=== PATIENT | female | born 2000 | race Caucasian/White ===

== ENCOUNTER 2022-05-20 13:10 | Outpatient (CLI) | payer BC, SELFPAY ==
--- OUTSIDE RECORDS SUMMARY | 2022-05-20 13:24 | XMS_ITS ---
:2001 Author Care Team Providers Name Role Phone DR. WILLIAM DACOSTA Primary Care Provider [phone] DR. LEANDRO DUMONT Referring Provider [phone] [facility] Physical Therapist [phone] Allergies Code Code System Name Reaction Severity Status Onset NKDA ? Medications Name Status Start Date Stop Date ? ? escitalopram 5 mg tablet Active ? Not justen ilable fluticasone propionate 50 mcg/actuation nasal spray,suspension A ctive ? Not available SHAKE LIQUID AND USE 2 SPRAYS IN EACH NOSTRIL EVERY DAY Isibloom 0.15 mg-0.03 mg tablet Active ? Not available TAKE 1 TABLET BY MOUTH DAILY nitrofurantoin monohydrate/macrocrystals 100 mg capsule Complete d ? 01/26/2022 TAKE 1 CAPSULE BY MOUTH EVERY 12 HOURS FOR 5 DAYS. Notes: Hydroxezene Problems Name Status Onset Date Source ? Recurrent Subluxation of Temporomandibular Joint Active 01/27/2022 ? Myofascial Pain Active 01/27/2022 ? Arthralgia of Temporomandibular Joint Active 01/27/2022 ? 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 Procedures Date Name Performed by ? 06/26/2019 [facility] Teeth Extraction Information not available Results Lab Results Date Name Specimen Result Interpretation Description Value Range Status Address ? 01/27/2022 Oral Appliance ? Type of maxillary ? ? [place]: Preparation* Appliance stabilization [address] [place] [address] Past Encounters 02/10/2022 Bilateral Temporomandibular Joint Articu lar Disc Disorder; Recurrent Subluxation of Temporomandibular Joint; Myofascial Pain; Arthralgia of Temporomandibular Joint Elba Ochoa, DDS: [address], [address], [place] [address], Ph. 01/26/2022 Recurrent Subluxation of Temporomandibul ar Joint; Arthralgia of Temporomandibular Joint; Bilateral Temporomandibular Joint Articular Disc Disorder; Myofascial Pain Elba Ochoa, DDS: [address] [facility], [address], [place] [address], Ph. Social History Tobacco Smoking Status Never Smoker Vaccine List Vaccine Type COVID-19 (SARS-COV-2) vaccine, unspecifi ed 05/26/2021 influenza, injectable, quadrivalent 03/26/2021 Plan of Care Reminders Provider Appointments None recorded. ? ? Lab None recorded. ? ? Referral None recorded. ? ? Procedures None recorded. ? ? Surgeries None recorded. ? ? Imaging None recorded. ? ? Vitals 02/10/2022 04:15PM SPLINT INSERT Height 5 ft 5 in 01/26/2022 01:00PM NEW PATIENT 60 Height Weight BMI Blood Pressure 5 ft 5 in 125 lbs 20.8 kg/m2 92/62 mm[Hg]
--- OUTSIDE RECORDS SUMMARY | 2022-05-20 13:24 | XMS_ITS | Clinical Summary ---
:2000 Author Organization [employer] [place] [address] Care Team Providers Name Role Phone Katia Olivier MD Primary Care Provider [phone] Allergies Active Allergy Reactions Severity Noted Date Comments Pollen Extracts Runny Nose 11/28/2018 Medications Medication Sig Dispensed Refills Start Date End Date Status cholecalciferol Take 1 capsule 0 09/06/2012 Active (VITAMIN D-3) 2,000 by mouth once unit capsule daily. durable medical Plantar 1 Each 0 11/24/2020 Act vu equipment fasciitis night (DME)Indications: splint, small, Plantar fasciitis Ref: [phone] fluticasone (50 mcg per Inhale 2 Sprays 48 g 3 12/10/2021 Active actuation) nasal to both nostrils solution once daily. (FLONASE)Indications: Allergic rhinitis, unspecified seasonality, unspecified trigger desogestrel-ethinyl Take 1 Tablet by 112 Tablet 3 01/13/2022 Active estradiol 0.15-30 mouth once mg-mcg (Isibloom) daily. tabletIndications: Uses contraception hydrOXYzine HCL Take 1-2 Tablets 5 Tablet 11 01/13/2022 Active (ATARAX) 25 mg (25-50 mg) by tabletIndications: mouth one time Severe needle phobia if needed for Anxiety. HOLD until patient calls escitalopram oxalate Take 1 Tablet 90 Tablet 0 04/11/2022 Active (LEXAPRO) 10 mg (10 mg) by mouth tabletIndications: every morning. Panic disorder Dose increase as of 04/11/2022 Active Problems Problem Noted Date Panic disorder 03/09/2018 Depression 03/09/2018 Performance anxiety 03/08/2018 Dog bite 04/27/2017 Psychophysiological insomnia 02/19/2016 Allergic rhinitis 11/27/2013 Anxiety state, unspecified 10/01/2012 Flat feet 12/12/2011 Other abnormal blood chemistry 09/17/2007 Resolved Problems Problem Noted Date Resolved Date Unspecified constipation 09/17/2007 08/08/2017 Encounters Date Type Specialty Care Team Description 04/11/2022 Telemedicine Katia Olivier Medicat ion Management MD Lenore (anxiety medica tions ); Telehealth (no vitals taken- virtual visit ) 04/11/2022 Travel from Last 3 Months Immunizations Name Administration Dates Next Due AMB Influenza, (Flumist) Live 06/23/2014, 05/30/2008 Intranasal,LAIV4 (Flu Clinic Only) AMB Influenza, IIV3 (Age >=3 04/11/2013 years)(Flu Clinic Only) COVID-19 vaccine ([employer] 06/14/2021, 10/22/2020, 30mcg/0.3mL) PF, MDV DTaP 01/31/2006, 06/08/2002, 02/26/2002, 2001, 2001 HIB-HepB (Comvax) 02/26/2002, 2001, 2001 Hepatitis A (Peds) 01/29/2013, 02/15/2012 Human Papilloma Virus Vaccine 01/29/2013, 02/15/2012 Inactivated Polio Vaccine 01/31/2006, 02/26/2002, 2001 , 2001 Influenza A (H1N1), Inactivated 04/16/2021, 06/03/2009, 04/27 Influenza A (H1N1), Live Intranasal 06/03/2009, 05/15/2009 Influenza, IIV3 (Age 6-35 mos) 05/15/2011, 06/03/2009, 06/15, 05/14/2007 Influenza, IIV3 (Age >=3 years) 05/15/2011, 06/03/2009, 05/27, 05/14/2007 Influenza,LAIV4 Live Intranasal 06/23/2014, 04/18/2012, 10/2007 (Flumist) MMR 01/31/2006, 05/28/2002 Meningococcal B 04/18/2019, 02/05/2019 Meningococcal Vaccine (Menveo) 02/05/2019, 02/15/2012 Pneumococcal conj 7-Valent (Prevnar 7) 05/28/2002, 2, 2001, 2001 Tdap 02/15/2012 Varicella Vaccine 02/19/2007, 05/28/2002 Family History Medical History Relation Name Comments ADD / ADHD Brother 1 Mihai ADD / ADHD Brother 2 Bennett Good Health Father Jeremie Cancer-breast Maternal Grandmother Good Health Mother Jocy Cancer-breast Paternal Grandmother Relation Name Status Comments Brother 1 Mihai Alive Brother 2 Ebnnett Alive Father Jeremie Alive Maternal Grandmother Mother Jocy Alive Paternal Grandmother Social History Tobacco Use Types Packs/Day Years Used Date Never Smoker Smokeless Tobacco: Never Used Tobacco Cessation: Counseling Given: Yes Comments: no one smokes in home Alcohol Use Standard Drinks/Week Comments Yes 0 (1 standard drink = 0.6 oz pure alcoho l) socially- very rare Alcohol Habits Answer Date Recorded How often do you have a drink containing alcohol? Monthly or less 02/03/2020 How many drinks containing alcohol do you have on a 1 or 2 02/03/2020 typical day when you are drinking? How often do you have six or more drinks on one Never 02/03/2020 occasion? Comment: socially- very rare 02/03/2020 Sex Assigned at Date Recorded Female 11/24/2020 12:15 PM CDT Obstetrics History Last Filed Vital Signs Vital Sign Reading Time Taken Comments Blood Pressure 108/71 01/13/2022 2:27 PM CDT Pulse 91 01/13/2022 2:27 PM CDT Temperature 36.8 ??C (98.2 ??F) 04/18/2019 2:07 PM CDT Respiratory Rate 18 12/17/2020 4:23 PM CDT Oxygen Saturation 98% 01/13/2022 2:27 PM CDT Inhaled Oxygen Concentration - - Weight 59 kg (130 lb) 12/22/2020 1:52 PM CDT Height 168.4 cm (5' 6.3) 01/13/2022 2:27 PM CDT Body Mass Index 21.63 12/17/2020 4:23 PM CDT Plan of Treatment Upcoming Encounters Date Type Specialty Care Team Description 05/23/2022 Telemedicine Tasha Olivier MD [address] [place], [place] [address] (Wo rk) Health Maintenance Due Date Last Done Comments HIV for age 15-65 02/07/2016 Hepatitis C screening for age 0802/06/2019 18-79 COVID-19 vaccine series (4 - 08/09/2021 06/14/2021, 021, Booster for Pfizer series) 10/01/2020 BMI (ht and wt on same day) for 12/17/2021 12/17/2020, 10/11/2019, age 18+ 04/18/2019 Pap test for age 21-65 2022 Tetanus booster 02/14/2022 02/15/2012 Influenza for age 9-49 02/24/2022 04/16/2021, 06/23/2014, 06/23/2014, Additional history exists Chlamydia for age 16-24 01/13/2023 01/13/2022, 12/17/2020 Depression screening for age 12+ 04/11/2023 04/11/2022, , 06/14/2021, Additional history exists Tdap Completed 02/15/2012 HPV series for age 9-26 Completed 01/29/2013, 02/15/2012 Meningococcal series for age 11-21 Completed 02/05/2019, 0 02/15/2012 Results Not on filefrom Last 3 Months Insurance Payer Benefit Plan / Subscriber ID Effective Dates Phone Addre ss Type Group [employer] [id number] 2016-Present [address] [place] [address] [employer] [id number] 2020-Present [address] [place] [address] Advance Directives Latest Code Status on File Code Status Date Activated Date Inactivated Comments Full Code 11/28/2018 9:00 PM 11/30/2018 7:39 PM Code Status Discussion: Not Discussed Care Teams Instrument Repairer Relationship Specialty Start Date End Date Katia Olivier MD PCP - General 12/01/05 [address] [place] [address]
[2022-05-20 13:46] LABS: Strep A DNA Probe* NOT DETECTED (Not Detectd)
== END 2022-05-20 13:11 | disposition home or self-care (01) ==
LOC: NFLDUCREF 13:14
PROVIDERS: Visit Provider Registered Nurse
DX: J02.9 Acute pharyngitis, unspecified (principal); J10.1 Influenza due to other identified influenza virus with other respiratory manifestations
CPT/HCPCS: 87651

== ENCOUNTER 2023-06-14 14:01 | Emergency (ER) | payer BC, SELFPAY ==
[2023-06-14 14:17] VITALS: BP 125/73; PULSE 100; RESP 20; TEMP 37.2; O2SAT 98; BMI 21.6
[2023-06-14 15:00] LABS: PCR FLU A POSITIVE PCR FLU A (Negative); PCR FLU B Negative PCR FLU B (Negative); PCR RSV Negative PCR RSV (Negative)
[2023-06-14 15:05] LABS: SARS PCR* POSITIVE SARS-CoV-2 (Negative)
[2023-06-14 16:17] VITALS: BP 128/80; PULSE 92; RESP 20; O2SAT 98
--- NOTE | 2023-06-14 16:21 | ED.GENADULT ---
HPI - General Adult General Chief complaint: Shortness of Breath/Dyspnea Stated complaint: Covid+, short of breath Time Seen by Provider: 06/14/23 15:39 History of Present Illness HPI narrative: This 23-year-old female comes in with upper respiratory symptoms that began 2 days ago. She states that she had fever with cough and nasal congestion. She reports a little bit of shortness of breath when exerting herself. She arrives here with normal vital signs. Related Data Home Medications Medication Instructions Recorded Confirmed desogestrel 0.15 mg-ethinyl 1 tab PO QDAY 05/20/22 05/20/22 estradiol 0.03 mg tablet (Isibloom) escitalopram oxalate 10 mg tablet 10 mg PO QDAY 05/20/22 05/20/22 (Lexapro) fluticasone propionate 50 2 spray intranasal QDAY 05/20/22 05/20/22 mcg/actuation nasal spray,suspension Previous Rx's Medication Instructions Recorded oseltamivir 75 mg capsule (Tamiflu) 75 mg PO BID 5 days #10 caps 06/14/23 Allergies Allergy/AdvReac Type Severity Reaction Status Date / Time pollen extracts Allergy Mild Verified 05/20/22 13:01 Review of Systems Status of ROS: Reports: 10 or more systems reviewed and unremarkable except as noted in History and below Narrative: Constitutional: No fevers, no weight gain or loss. Eyes: No discharge. No vision changes. HENT: Nasal congestion, no sore throat, no ear pain. Cardiovascular: No chest pain, no palpitations. Respiratory: No shortness of breath, no wheezes. She reports a cough. Gastrointestinal: No abdominal pain, no vomiting, no diarrhea. Genitourinary: No dysuria, no hematuria. Musculoskeletal: Normal range of motion. Skin: No rashes, no pruritis. Neurological: No dizziness, weakness, sensory change, speech change. Endo/Heme/Allergies: No bruising or bleeding. No polydipsia. Pysch: no suicidality, no anxiety, no insomnia. All other systems reviewed and are negative. PFSH PFS Social History Smoking Status: Never smoker Exam Narrative: Exam Narrative: Constitutional: Well-developed, well-nourished, no acute distress. HEENT: Normocephalic, atraumatic. Neck: Normal range of motion. Nontender. Supple. Heart: Regular. No murmurs. Normal rate. Intact distal pulses. Lungs: Clear to auscultation. No chest discomfort. No wheezes, rhonchi, or rales. Abdomen: Normal bowel sounds. Nontender. No rebound tenderness. Genitalia: Deferred. Back: No midline tenderness. Normal range of motion. Extremities: Normal range of motion. No injury. Skin: Intact. No rash. Warm. No erythema or pallor. Neurologic: No altered sensation. No weakness. Alert and oriented. Psychiatric: No suicidality. No anxiety or depression. No insomnia. Nursing notes and vitals signs are reviewed. Const: Vital Signs, click to edit/add: Vital Signs - 24 hr 06/14/23 14:17 Temperature 98.9 F Pulse Rate [Pulse Oximeter] 100 Respiratory Rate 20 Blood Pressure [Ri ght Upper Arm] 125/73 Pulse Oximetry 98 Oxygen Delivery Me thod Room Air Course Vital Signs Vital signs: Initial Vital Signs Temperature 98.9 F 06/14/23 14:17 Temperature Source Temporal Artery Scan 06/14/23 14:17 Pulse Rate 100 06/14/23 14:17 Respiratory Rate 20 06/14/23 14:17 Blood Pressure 125/73 06/14/23 14:17 Blood Pressure Mean 90 06/14/23 14:17 Blood Pressure Position Sitting 06/14/23 14:17 Pulse Oximetry 98 06/14/23 14:17 Oxygen Delivery Method Room Air 06/14/23 14:17 Vital Signs Temperature 98.9 F 06/14/23 14:17 Pulse Rate 100 06/14/23 14:17 Respiratory Rate 20 06/14/23 14:17 Blood Pressure 125/73 06/14/23 14:17 Pulse Oximetry 98 06/14/23 14:17 Oxygen Delivery Method Room Air 06/14/23 14:17 Temperature 98.9 F 06/14/23 14:17 Pulse Rate 100 06/14/23 14:17 Respiratory Rate 20 06/14/23 14:17 Blood Pressure 125/73 06/14/23 14:17 Pulse Oximetry 98 06/14/23 14:17 Oxygen Delivery Method Room Air 06/14/23 14:17 Medical Decision Making MDM Narrative Medical decision making narrative: Nasal pharyngeal swab returns positive for both COVID and influenza a. The patient had symptoms beginning less than 48 hours ago and is a candidate for Tamiflu. She also received an oral dose of dexamethasone 10 mg. She is encouraged to use [id number] medicines as needed and directed also. Lab Data Labs: Lab Results 06/14/23 Range/Units 14:15 SARS-CoV-2 (PCR) POSITIVE SARS-CoV-2 A (Negative) Influenza Type A (PCR) POSITIVE PCR FLU A A (Negative) Influenza Type B (PCR) Negative PCR FLU B (Negative) RSV (PCR) Negative PCR RSV (Negative) Discharge Plan Discharge Clinical Impression: COVID-19, Influenza A Patient Disposition: Home, Self-Care Condition: Stable Additional Instructions: Take medication as prescribed. Use [id number] medicines also as needed and directed. Follow up with MD return if worsening symptoms occur. Prescriptions: New oseltamivir [Tamiflu] 75 mg capsule 75 mg PO BID 5 Days Qty: 10 0RF No Action escitalopram oxalate [Lexapro] 10 mg tablet 10 mg PO QDAY fluticasone propionate 50 mcg/actuation spray,suspension 2 spray intranasal QDAY Rx Instructions: administer into each nostril desogestrel-ethinyl estradiol [Isibloom] 0.15-0.03 mg tablet 1 tab PO QDAY Follow Up/Referrals: Provider,Not a Local [Primary Care Provider] - Stand Alone Forms: [employer] Info Instructions
[2023-06-14] MEDS: dexAMETHasone 10 MG/ML inj PO (16:38)
== END 2023-06-14 16:45 | disposition home or self-care (01) ==
LOC: ED 16:30
PROVIDERS: Emergency Provider Emergency Medicine Emergency Medical Services; PCP Family Medicine
DX: U07.1 COVID-19 (principal); J10.1 Influenza due to other identified influenza virus with other respiratory manifestations
CPT/HCPCS: 87631; 99283; 99284; J1100